=== PATIENT | male | born 1975 | race Hispanic/Latino ===

== ENCOUNTER 2017-07-14 15:56 | Inpatient (IN) | payer MEDICARE ==
[~2017-07-14] VITALS: Ht 162.6 cm; Wt 108.0 kg
[2017-07-14] MEDS ORDERED: GADOBENATE DIMEGLUMINE 20 ML IV ONE (16:37)
[2017-07-14 17:01] LABS: BASOPHILS % (AUTO) 0.2 % (0.0-5.0); EOSINOPHILS % (AUTO) 0.3 % (0.0-8.0); HEMATOCRIT 40.7 % (42-54); LYMPHOCYTES % (AUTO) 4.6 % (21.0-51.0); MEAN CORPUSCULAR HEMOGLOBIN 32.4 pg (27.0-33.0); MEAN CORPUSCULAR HGB CONC 34.2 g/dL (32.0-36.0); MEAN CORPUSCULAR VOLUME 94.9 fL (79-99); MONOCYTES % (AUTO) 4.3 % (3.0-13.0); NEUTROPHILS % (AUTO) 90.6 % (40.0-77.0); PLATELET COUNT (AUTO) 179 K/uL (130-400); RED BLOOD CELL COUNT(AUTO) 4.28 MIL/uL (4.50-6.20); RED CELL DISTRIBUTION WIDTH 15.6 % (11.0-15.5); WHITE BLOOD COUNT (AUTO) 15.3 K/uL (4.8-10.8)
[2017-07-14 17:10] LABS: CREATININE 1.1 mg/dL (0.5-1.5); POTASSIUM 3.6 mmol/L (3.5-5.1)
[2017-07-14 17:15] LABS: ALBUMIN 2.5 g/dL (3.5-5.0); BILIRUBIN,TOTAL 0.9 mg/dL (0.2-1.0)
[2017-07-14 18:01] LABS: ERYTHROCYTE SEDIMENTATION RATE 105 MM/HR (0-15)
[2017-07-14 18:56] LABS: APPEARANCE,URINE Turbid (CLEAR); BILIRUBIN,URINE Negative (NEGATIVE); COLOR,URINE Dark Yellow (YELLOW); GLUCOSE, URINE (UA) Negative (NEGATIVE); KETONES,URINE 15 mg/dL (NEGATIVE); LEUKOCYTE ESTERASE ,URINE Large (NEGATIVE); NITRATE,URINE Positive (NEGATIVE); OCCULT BLOOD,URINE Moderate (NEGATIVE); PH,URINE 5.5 (5.0-8.0); PROTEIN,URINE POS 2+ (NEGATIVE)
[2017-07-14 19:04] LABS: AMPHET/METH SCREEN,URINE NEGATIVE (NEGATIVE); BARBITURATE SCREEN, URINE NEGATIVE (NEGATIVE); BENZODIAZEPINES SCREEN,URINE NEGATIVE (NEGATIVE); CANNABINOID SCREEN,URINE POSITIVE (NEGATIVE); COCAINE SCREEN,URINE NEGATIVE (NEGATIVE); OPIATE SCREEN,URINE NEGATIVE (NEGATIVE); PHENCYCLIDINE SCREEN,URINE NEGATIVE (NEGATIVE)
[2017-07-14 19:11] LABS: BACTERIA,URINE Moderate /HPF (None Seen); WBC,URINE 51-100 /HPF (0-1)
[2017-07-14] MEDS ORDERED: MEROPENEM 1 GM VIAL ONE (19:54)
[2017-07-14] MEDS ORDERED: MORPHINE SULFATE 2 MG/ML 1ML SYG ONE (19:54)
[2017-07-14] MEDS ORDERED: SODIUM CHLORIDE 0.9% 100 ML IV ONE (19:55)
[2017-07-14] MEDS ORDERED: MEROPENEM 500MG+NS 50ML 50 ML IV SCH (22:00)
[2017-07-14] MEDS ORDERED: VANCOMYCIN 1GM+NS 250ML 250 ML IV SCH (22:00)
[2017-07-14] MEDS ORDERED: VANCOMYCIN PROTOCOL PER PHARMACY IV SCH (22:30)
[2017-07-14] MEDS ORDERED: ONDANSETRON HCL 4 MG/2 ML VIAL IVP PRN (23:00)
[2017-07-14] MEDS ORDERED: ACETAMINOPHEN 325 MG TAB PO PRN (23:00)
[2017-07-14] MEDS ORDERED: HYDROCODONE/ACETAMINOPHEN 7.5/325 MG TAB PO PRN (23:00)
[2017-07-15 00:08] VITALS: BP 136/93
[2017-07-15] MEDS ORDERED: SODIUM CHLORIDE 0.9% 1000ML 1,000 ML IV ONE (03:37)
[2017-07-15] MEDS: SODIUM CHLORIDE 0.9% 1000ML 1,000 ML IV SCH ×2 (03:45→17:05)
[2017-07-15 04:00] VITALS: BP 135/88
[2017-07-15] MEDS: FAMOTIDINE 20MG TAB 20 MG TAB PO SCH ×2 (05:09→20:01)
[2017-07-15] MEDS ORDERED: MEROPENEM 500 MG VIAL IVP SCH (06:00)
[2017-07-15 06:07] LABS: BASOPHILS % (AUTO) 0.2 % (0.0-5.0); EOSINOPHILS % (AUTO) 0.3 % (0.0-8.0); HEMATOCRIT 39.4 % (42-54); MEAN CORPUSCULAR HEMOGLOBIN 32.3 pg (27.0-33.0); MEAN CORPUSCULAR VOLUME 95.1 fL (79-99); MONOCYTES % (AUTO) 6.3 % (3.0-13.0); NEUTROPHILS % (AUTO) 85.2 % (40.0-77.0); PLATELET COUNT (AUTO) 174 K/uL (130-400); RED BLOOD CELL COUNT(AUTO) 4.14 MIL/uL (4.50-6.20); RED CELL DISTRIBUTION WIDTH 15.2 % (11.0-15.5); WHITE BLOOD COUNT (AUTO) 12.5 K/uL (4.8-10.8)
[2017-07-15 06:14] LABS: CREATININE 1.1 mg/dL (0.5-1.5); POTASSIUM 3.3 mmol/L (3.5-5.1)
[2017-07-15] MEDS ORDERED: LEVO25TA54 PO (06:21)
[2017-07-15] MEDS ORDERED: ICOS1CAP PO (06:21)
[2017-07-15] MEDS ORDERED: COMPOUND IV REFRIGERATED 1 EACH IVSOLN MISC PRN (06:45)
[2017-07-15 07:00] VITALS: BP 130/93
[2017-07-15] MEDS ORDERED: POTASSIUM CHLORIDE 20MEQ/100ML 100 ML IV PRN (07:45)
[2017-07-15] MEDS ORDERED: POTASSIUM CHLORIDE 20 MEQ ERTAB PO PRN (07:45)
[2017-07-15] MEDS ORDERED: POTASSIUM CHLORIDE 10% ELIXIR 20 MEQ/15 ML UDCUP PO PRN (07:45)
[2017-07-15] MEDS ORDERED: LIDOCAINE HCL-MPF 1% 2ML VIAL IVP PRN (07:45)
[2017-07-15] MEDS ORDERED: CEFTRIAXONE 2GM+NS 100ML 100 ML IV SCH (08:45)
[2017-07-15] MEDS ORDERED: CEFTRIAXONE SODIUM 2 GM VIAL IVP SCH (09:00)
[2017-07-15] MEDS ORDERED: WATER FOR INJECTION,STERILE 20 ML VIAL IJ SCH (09:00)
[2017-07-15] MEDS: ENOXAPARIN SODIUM 40 MG/0.4 ML SYRINGE SQ SCH (09:10)
[2017-07-15] MEDS: VANCOMYCIN 1.5 GM in SODIUM CHLORIDE 0.9% 250 ML IV SCH ×2 (09:11→21:06)
[2017-07-15] MEDS: DEXAMETHASONE IV SCH ×4 (09:12→23:52)
[2017-07-15] MEDS: SODIUM CHLORIDE 0.9% IV SCH ×4 (09:12→23:52)
[2017-07-15 11:00] VITALS: BP 146/86
[2017-07-15] MEDS ORDERED: COMPOUND IV MISC 1 EACH IVSOLN MISC PRN (12:15)
[2017-07-15] MEDS ORDERED: HYDRALAZINE HCL 20 MG/ML VIAL IV PRN (15:00)
[2017-07-15 16:00] VITALS: BP 143/95
[2017-07-15] MEDS: INSULIN HUMULIN R 100 UNIT/ML 3ML SQ SCH ×2 (16:30→20:47)
[2017-07-15 20:15] VITALS: BP 142/89
[2017-07-15] MEDS: CEFTRIAXONE SODIUM 2 GM VIAL IVP SCH (21:06)
[2017-07-16] VITALS: BP 143/81
[2017-07-16 04:20] VITALS: BP 147/91
[2017-07-16 04:58] LABS: HEMATOCRIT 38.8 % (42-54); MEAN CORPUSCULAR HEMOGLOBIN 32.3 pg (27.0-33.0); MEAN CORPUSCULAR HGB CONC 34.1 g/dL (32.0-36.0); MEAN CORPUSCULAR VOLUME 94.7 fL (79-99); PLATELET COUNT (AUTO) 198 K/uL (130-400); RED CELL DISTRIBUTION WIDTH 14.9 % (11.0-15.5); WHITE BLOOD COUNT (AUTO) 8.8 K/uL (4.8-10.8)
[2017-07-16 05:07] LABS: CREATININE 1.1 mg/dL (0.5-1.5); MAGNESIUM 1.9 mg/dL (1.80-2.40); POTASSIUM 3.8 mmol/L (3.5-5.1)
[2017-07-16] MEDS: DEXAMETHASONE IV SCH ×3 (05:31→18:17)
[2017-07-16] MEDS: SODIUM CHLORIDE 0.9% IV SCH ×3 (05:31→18:17)
[2017-07-16] MEDS: SODIUM CHLORIDE 0.9% 1000ML 1,000 ML IV SCH ×2 (05:31→19:46)
[2017-07-16] MEDS: LEVOTHYROXINE 25 MCG TABLET PO SCH (05:33)
[2017-07-16] MEDS: INSULIN HUMULIN R 100 UNIT/ML 3ML SQ SCH ×4 (05:53→21:00)
[2017-07-16 08:09] VITALS: BP 139/89
[2017-07-16] MEDS: CEFTRIAXONE SODIUM 2 GM VIAL IVP SCH ×2 (08:14→19:34)
[2017-07-16] MEDS: ENOXAPARIN SODIUM 40 MG/0.4 ML SYRINGE SQ SCH (08:14)
[2017-07-16] MEDS: VANCOMYCIN 1.5 GM in SODIUM CHLORIDE 0.9% 250 ML IV SCH ×2 (09:12→21:32)
[2017-07-16] MEDS ORDERED: LISI-617 PO (10:35)
[2017-07-16 11:53] VITALS: BP 143/95
[2017-07-16 16:31] VITALS: BP 139/94
[2017-07-16] MEDS: ZINC OXIDE OINT 56.7 GM TP PRN (19:34)
[2017-07-16] MEDS: BALSAM PERU/CASTOR OIL 60 GM TUBE TP PRN (19:34)
[2017-07-16 20:00] VITALS: BP 140/91
[2017-07-16] MEDS: FAMOTIDINE 20MG TAB 20 MG TAB PO SCH (22:10)
[2017-07-17] VITALS (7 sets, daily range): BP systolic 128–149; BP diastolic 75–98
[2017-07-17] MEDS: DEXAMETHASONE IV SCH ×5 (00:48→23:38)
[2017-07-17] MEDS: SODIUM CHLORIDE 0.9% IV SCH ×5 (00:48→23:38)
[2017-07-17] MEDS: LEVOTHYROXINE 25 MCG TABLET PO SCH (05:40)
[2017-07-17] MEDS: INSULIN HUMULIN R 100 UNIT/ML 3ML SQ SCH ×4 (05:41→20:47)
[2017-07-17 05:44] LABS: HEMATOCRIT 39.8 % (42-54); MEAN CORPUSCULAR HEMOGLOBIN 32.6 pg (27.0-33.0); MEAN CORPUSCULAR HGB CONC 34.3 g/dL (32.0-36.0); MEAN CORPUSCULAR VOLUME 95.1 fL (79-99); PLATELET COUNT (AUTO) 235 K/uL (130-400); RED BLOOD CELL COUNT(AUTO) 4.18 MIL/uL (4.50-6.20); WHITE BLOOD COUNT (AUTO) 9.4 K/uL (4.8-10.8)
[2017-07-17 05:52] LABS: CREATININE 1.2 mg/dL (0.5-1.5); POTASSIUM 3.5 mmol/L (3.5-5.1)
[2017-07-17] MEDS: CEFTRIAXONE SODIUM 2 GM VIAL IVP SCH ×2 (08:40→20:00)
[2017-07-17] MEDS: VANCOMYCIN 1.5 GM in SODIUM CHLORIDE 0.9% 250 ML IV SCH ×2 (08:40→20:01)
[2017-07-17] MEDS: ENOXAPARIN SODIUM 40 MG/0.4 ML SYRINGE SQ SCH (08:41)
[2017-07-17] MEDS ORDERED: ZOLPIDEM TARTRATE 5 MG TAB PO PRN (11:00)
[2017-07-17] MEDS ORDERED: DiphenhydrAMINE HCL 50 MG/ML VIAL IV PRN (11:00)
[2017-07-17] MEDS: BALSAM PERU/CASTOR OIL 60 GM TUBE TP PRN (12:29)
[2017-07-17] MEDS: ZINC OXIDE OINT 56.7 GM TP PRN (12:29)
[2017-07-17] MEDS: SODIUM CHLORIDE 0.9% 1000ML 1,000 ML IV SCH ×2 (16:31→21:47)
[2017-07-17] MEDS: FAMOTIDINE 20MG TAB 20 MG TAB PO SCH (21:48)
[2017-07-18 04:04] VITALS: BP 129/88
[2017-07-18 05:27] LABS: HEMATOCRIT 39.1 % (42-54); MEAN CORPUSCULAR HEMOGLOBIN 32.5 pg (27.0-33.0); MEAN CORPUSCULAR HGB CONC 34.2 g/dL (32.0-36.0); PLATELET COUNT (AUTO) 253 K/uL (130-400); RED BLOOD CELL COUNT(AUTO) 4.12 MIL/uL (4.50-6.20); RED CELL DISTRIBUTION WIDTH 15.1 % (11.0-15.5); WHITE BLOOD COUNT (AUTO) 7.6 K/uL (4.8-10.8)
[2017-07-18] MEDS: INSULIN HUMULIN R 100 UNIT/ML 3ML SQ SCH ×4 (05:43→20:33)
[2017-07-18] MEDS: LEVOTHYROXINE 25 MCG TABLET PO SCH (05:43)
[2017-07-18] MEDS: DEXAMETHASONE IV SCH ×4 (05:43→23:58)
[2017-07-18] MEDS: SODIUM CHLORIDE 0.9% IV SCH ×4 (05:43→23:58)
[2017-07-18 05:52] LABS: CREATININE 1.2 mg/dL (0.5-1.5); POTASSIUM 4.1 mmol/L (3.5-5.1)
[2017-07-18 07:55] VITALS: BP 124/68
[2017-07-18 07:55] LABS: BAND NEUTROPHILS % (MANUAL) 1 % (0-2); LYMPHOCYTES % (MANUAL) 12 % (22-44); MONOCYTES % (MANUAL) 4 % (2-9); PLATELET MORPHOLOGY COMMENT ADEQUATE; SEGMENTED NEUTROPHILS % 83 % (40-70)
[2017-07-18 07:56] LABS: MAN.DIFF COMMENT-IMPRESSION MANUAL DIFFERENTIAL
[2017-07-18] MEDS: VANCOMYCIN 1.5 GM in SODIUM CHLORIDE 0.9% 250 ML IV SCH ×2 (08:54→20:25)
[2017-07-18] MEDS: CEFTRIAXONE SODIUM 2 GM VIAL IVP SCH ×2 (08:54→20:23)
[2017-07-18] MEDS: ENOXAPARIN SODIUM 40 MG/0.4 ML SYRINGE SQ SCH (08:55)
[2017-07-18 11:23] VITALS: BP 136/85
[2017-07-18] MEDS: SODIUM CHLORIDE 0.9% 1000ML 1,000 ML IV SCH (14:34)
[2017-07-18 16:00] VITALS: BP 153/77
[2017-07-18 19:50] VITALS: BP 124/84
[2017-07-18] MEDS: FAMOTIDINE 20MG TAB 20 MG TAB PO SCH (22:45)
[2017-07-18 23:38] VITALS: BP 151/93
[2017-07-19 04:29] VITALS: BP 122/72
[2017-07-19] MEDS: SODIUM CHLORIDE 0.9% IV SCH ×3 (05:59→16:44)
[2017-07-19] MEDS: DEXAMETHASONE IV SCH ×3 (05:59→16:44)
[2017-07-19] MEDS: LEVOTHYROXINE 25 MCG TABLET PO SCH (05:59)
[2017-07-19] MEDS: INSULIN HUMULIN R 100 UNIT/ML 3ML SQ SCH ×3 (06:10→16:30)
[2017-07-19 08:00] VITALS: BP 153/84
[2017-07-19] MEDS: VANCOMYCIN 1.5 GM in SODIUM CHLORIDE 0.9% 250 ML IV SCH (09:23)
[2017-07-19] MEDS: ENOXAPARIN SODIUM 40 MG/0.4 ML SYRINGE SQ SCH (09:23)
[2017-07-19] MEDS: CEFTRIAXONE SODIUM 2 GM VIAL IVP SCH (09:23)
[2017-07-19] MEDS: SODIUM CHLORIDE 0.9% 1000ML 1,000 ML IV SCH (09:24)
[2017-07-19] MEDS ORDERED: LORAZEPAM 1 MG TABLET PO PRN (11:45)
[2017-07-19 12:00] VITALS: BP 142/91
[2017-07-19 16:00] VITALS: BP 122/66
== END 2017-07-19 17:15 | disposition short-term general hospital (02) | DRG 602 ==
LOC: EDH 15:56 → EDHIP 19:52 → 4BH 07-15 00:08
PROVIDERS: ADMIT Family Medicine; ATTEND Family Medicine
DX: L02.212 Cutaneous abscess of back [any part, except buttock and flank] (principal); G82.50 Quadriplegia, unspecified; E44.0 Moderate protein-calorie malnutrition; Z68.41 Body mass index [BMI] 40.0-44.9, adult; N39.0 Urinary tract infection, site not specified; L03.312 Cellulitis of back [any part except buttock and flank]; D64.9 Anemia, unspecified; E03.9 Hypothyroidism, unspecified; E66.01 Morbid (severe) obesity due to excess calories; E87.6 Hypokalemia; F17.200 Nicotine dependence, unspecified, uncomplicated; G89.29 Other chronic pain; I10 Essential (primary) hypertension; Q05.7 Lumbar spina bifida without hydrocephalus; Z74.01 Bed confinement status; Q05.9 Spina bifida, unspecified; Z28.21 Immunization not carried out because of patient refusal
CPT/HCPCS: 36415; 72158; 80048; 80053; 80202; 80305; 81001; 82948; 83605; 83735; 85025; 85027; 85651; 87040; 87070; 87076; 87077; 87088; 87186; 87190; A4218; A9577; J0360; J0696; J1100; J1650; J1815; J2185; J3370; J7030